=== PATIENT | male | born 1990 | race Caucasian/White ===

== ENCOUNTER 2023-07-02 20:19 | Emergency (ER) | payer OTHER ==
[~2023-07-02] VITALS: Ht 182.9 cm; Wt 81.6 kg
[2023-07-02] MEDS ORDERED: FENTANYL PF 100MCG/2ML AMPUL ONE (20:39)
[2023-07-02 20:40] LABS: BASOPHILS % (AUTO) 0.1 % (0.0-2.0); EOSINOPHILS # (AUTO) 0.4 K/uL (0.0-0.7); EOSINOPHILS % (AUTO) 4.6 % (0.0-6.0); HEMATOCRIT 45 % (39-51); HEMOGLOBIN 15.5 g/dL (13.5-17.5); LYMPHOCYTES # (AUTO) 3.7 K/uL (0.8-4.8); LYMPHOCYTES % (AUTO) 42.3 % (20.0-44.0); MEAN CORPUSCULAR HEMOGLOBIN 31 PG (26.0-33.0); MEAN CORPUSCULAR HGB CONC 34 g/dl (31.0-36.0); MEAN CORPUSCULAR VOLUME 89 fL (80-96); MONOCYTES # (AUTO) 0.3 K/uL (0.1-1.30); NEUTROPHILS # (AUTO) 4.3 K/uL (1.8-8.9); PLATELET COUNT (AUTO) 277 K/uL (150-450); RED BLOOD CELL COUNT(AUTO) 5.08 MIL/uL (4.5-6.0); RED CELL DISTRIBUTION WIDTH 13.4 % (11.5-15.0); WHITE BLOOD COUNT (AUTO) 8.8 K/uL (4.3-11.0)
[2023-07-02] MEDS: FENTANYL PF 100MCG/2ML AMPUL IV ONE (20:46)
[2023-07-02 20:52] VITALS: TEMP 98.2
[2023-07-02 20:52] LABS: CALCIUM, SERUM 8.8 mg/dL (8.5-10.1); CREATININE 1.4 mg/dL (0.6-1.3); POTASSIUM 3.2 mmol/L (3.5-5.1)
[2023-07-02 20:54] LABS: INR 1.05 (0.91-1.10); PROTHROMBIN TIME 11.1 SECS (9.2-11.1)
[2023-07-02] MEDS ORDERED: LIDOCAINE 1%-EPI 1:100,000 20 ML VIAL ONE (20:55)
[2023-07-02 20:59] LABS: ALBUMIN 4.2 g/dL (3.4-5.0); BILIRUBIN,DIRECT 0.1 mg/dL (0.0-0.2); BILIRUBIN,TOTAL 0.7 mg/dL (0.2-1.0)
[2023-07-02 21:14] LABS: PARTIAL THROMBOPLASTIN TIME 22.1 SEC (24.3-34.3)
[2023-07-02 21:19] VITALS: BP 151/80; O2SAT 98
[2023-07-02] MEDS ORDERED: IV NS 0.9% 250 ML IV ONE (21:35)
[2023-07-02] MEDS ORDERED: CT SWABBABLE VALVE TRANS SET 1 EA INFUS.SET MC ONE (21:35)
[2023-07-02] MEDS ORDERED: IOHEXOL-350 100 ML VIAL IV ONE (21:35)
[2023-07-02] MEDS ORDERED: LIDOCAINE 1% INJ 50 ML MDV IJ ONE (21:42)
[2023-07-02] MEDS ORDERED: TDAP [DIPH/PERTUSSIS/TET] 0.5 ML VIAL IM ONE (22:01)
[2023-07-02 22:03] LABS: ANISOCYTOSIS 1+; LYMPHOCYTES % (MANUAL) 48 % (16-48); MONOCYTES % (MANUAL) 5 % (0-11.0); NEUTROPHILS % (MANUAL) 46 (42-76); OVALOCYTES RARE; PLATELET ESTIMATE ADEQUATE; REACTIVE LYMPHOCYTES 1 % (0-0)
[2023-07-02] MEDS: TDAP [DIPH/PERTUSSIS/TET] 0.5 ML VIAL IM ONE (22:03)
== END 2023-07-02 23:01 | disposition short-term general hospital (02) ==
LOC: EDBD 20:23 → ER 20:23
DX: S81.812A Laceration without foreign body, left lower leg, initial encounter (principal); W34.09XA Accidental discharge from other specified firearms, initial encounter; Y93.89 Activity, other specified; Y92.89 Other specified places as the place of occurrence of the external cause; Y99.8 Other external cause status
CPT/HCPCS: 12002; 36415; 71045; 72170; 73130; 73552; 73590; 74018; 75635; 80048; 80076; 85007; 85025; 85730; 90471; 90715; 96374; 99291; A6253; A6403; J3010; J3490; J7030; J7050; Q9967